=== PATIENT | male | born 1985 | race Caucasian/White ===

== ENCOUNTER 2020-02-18 18:23 | Emergency (ER) | payer SELFPAY ==
[~2020-02-18] VITALS: Ht 165.1 cm; Wt 54.5 kg
[2020-02-18 18:26] VITALS: TEMP 98
[2020-02-18 19:23] VITALS: BP 126/85; PULSE 75
== END 2020-02-18 19:23 | disposition home or self-care (01) ==
LOC: COL.ER 18:23
DX: M65.4 Radial styloid tenosynovitis [de Quervain] (principal); F17.210 Nicotine dependence, cigarettes, uncomplicated